=== PATIENT | male | born 1975 | race Caucasian/White ===

== ENCOUNTER 2018-05-17 09:59 | Emergency (ER) | payer SELFPAY ==
--- NOTE | 2018-05-17 10:37 | ER Document Report ---
ED General - General Chief Complaint: Knee Pain Stated Complaint: RIGHT KNEE PAIN Time Seen by Provider: 05/17/18 10:12 Notes: Patient is a 42-year-old male that presents to the emergency department for chief complaint of right knee pain. Patient states his been having knee swelling over the past week, and pain associated with walking. It has been progressively worse x-ray of the last 3 weeks, but worse in the last week so he decided come to the emergency department to have this evaluated. He states he has had issues with his knees in the past, and believes he has arthritis, he does have a history of gout as well, but this is not similar to his gout, and the pain is not as bad as when he had gout. He denies noting any fevers, chills or night sweats associated. The pain does not radiate to the hip or to the ankle. Denies any injury that he is aware of. He currently rates the pain as a 4 out of 10, worse with trying to extend his knee completely. 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 He does take naproxen which has not given him much relief. Past Medical History: Osteoarthritis, gout Past Surgical History: Denies surgical history Social History: Denies tobacco, alcohol or drug use Family History: Reviewed and noncontributory for presenting illness Allergies: Reviewed, see documented allergy list. REVIEW OF SYSTEMS: Unless otherwise stated in this report the patient's positive and negative responses for review of systems for constitutional, eyes, ENT, cardiovascular, respiratory, gastrointestinal, neurological, genitourinary, musculoskeletal, and integumentary systems and related systems to the presenting problem are either as stated in the HPI or were not pertinent or were negative for the symptoms and/or complaints related to the presenting medical problem. PHYSICAL EXAMINATION: Vital signs reviewed, nursing noted reviewed. GENERAL: Well-appearing, well-nourished and in no acute distress. HEAD: Atraumatic, normocephalic. EYES: Eyes appear normal, extraocular movements intact, sclera anicteric, conjunctiva are normal. ENT: nares patent, oropharynx clear without exudates. Moist mucous membranes. NECK: Normal range of motion, supple without lymphadenopathy LUNGS: Breath sounds clear to auscultation bilaterally and equal. No wheezes rales or rhonchi. HEART: Regular rate and rhythm without murmurs ABDOMEN: Soft, nontender, normoactive bowel sounds. No rebound, guarding, or rigidity. No masses appreciated. EXTREMITIES: Right knee effusion noted, no warmth or erythema noted. Tenderness with palpation over the medial and lateral joint lines. Good ROM, no joint laxity. Rest the patient's extremity exam is unremarkable. Good range of motion, nontender. NEUROLOGICAL: No focal neurological deficits. Moves all extremities spontaneously Motor and sensory grossly intact on exam. PSYCH: Normal mood, normal affect. SKIN: Warm, Dry, normal turgor, no rashes or lesions noted on exposed skin TRAVEL OUTSIDE OF THE [place] IN LAST 30 DAYS: No - Related Data Allergies/Adverse Reactions: No Known Allergies Allergy (Unverified 05/17/18 10:02) Past Medical History - Social History Smoking Status: Current Every Day Smoker Chew tobacco use (# tins/day): No Frequency of alcohol use: None Drug Abuse: None Family History: Reviewed & Not Pertinent Patient has suicidal ideation: No Patient has homicidal ideation: No Renal/ Medical History: Denies: Hx Peritoneal Dialysis Course - Re-evaluation Re-evalutation: Patient seen and examined vital signs reviewed. Patient was evaluated and treated as appropriate for the patient's presenting symptoms and complaint, with consideration of any critical or life threatening conditions that may be associated with their obtained history and exam as noted above. Patient was treated with tramadol and Depo-Medrol The patient was re-evaluated and was improved, given Jaime wrap offered crutches but declined Evaluation was most consistent with knee effusion, and pain, advised patient to follow-up with orthopedics, given prescription for tramadol Plan of care was discussed with the patient at this point, after careful consideration I feel that that patient can be discharged from the emergency department, the patient was educated treatments and reasons to return to the emergency department based on their presumed diagnosis as noted above, they were advised to followup with a primary care physician in 2-3 days. Patient was agreeable to plan of care. *Note is created using voice recognition software and may contain spelling, syntax or grammatical errors. Knee X-Ray 05/17/18 10:04 IMPRESSION: NEGATIVE STUDY OF THE RIGHT KNEE. NO RADIOGRAPHIC EVIDENCE OF ACUTE INJURY. Procedures - Immobilization Right Knee Pre-Proc Neuro Vasc Exam: Normal Immobilizer type: Jaime wrap Performed by: PCT Post-Proc Neuro Vasc Exam: Normal Alignment checked and good: Yes Discharge - Discharge Clinical Impression: Knee pain Qualifiers: Chronicity: acute Laterality: right Qualified Code(s): M25.561 - Pain in right knee Condition: Stable Disposition: HOME, SELF-CARE Instructions: Use of Crutches ([facility]), Ice & Elevation ([facility]), Sprained Knee ([facility]) Additional Instructions: Keep your leg elevated, apply the Jaime wrap, as much as possible, use crutches to keep your weight off. Right knee, and please follow-up with orthopedic surgery. Prescriptions: Ibuprofen [Motrin 600 Mg Tablet] 600 mg PO TID #15 tablet Tramadol HCl 50 mg PO Q8H PRN #10 tablet PRN Reason: knee pain Referrals: WILLIAM ASHLEY MD [ACTIVE STAFF] - Follow up as needed [facility] [Provider Group] - Follow up as needed
--- NOTE | 2018-05-17 11:02 | RADIOLOGY REPORT (SQ) ---
EXAM DESCRIPTION: KNEE RIGHT 4 VIEWS COMPLETED DATE/TIME: 05/17/2018 10:36 am REASON FOR STUDY: knee pain, previous injury COMPARISON: None. NUMBER OF VIEWS: Four views. TECHNIQUE: AP, lateral, and both oblique radiographic images acquired of the right knee. LIMITATIONS: None. FINDINGS: MINERALIZATION: Normal. BONES: No acute fracture or dislocation. No worrisome bone lesions. JOINT: No effusion. SOFT TISSUES: No soft tissue swelling. No radio-opaque foreign body. OTHER: No other significant finding. IMPRESSION: NEGATIVE STUDY OF THE RIGHT KNEE. NO RADIOGRAPHIC EVIDENCE OF ACUTE INJURY. TECHNICAL DOCUMENTATION: JOB ID: [id number] [employer]- All Rights Reserved Reading location - IP/workstation name: [email or web address]
[2018-05-17] MEDS ORDERED: TRAMADOL HCL 50 MG TABLET PO ONE (11:06)
[2018-05-17] MEDS ORDERED: METHYLPREDNISOLONE ACETATE INJ 80 MG/1 ML VIAL IM ONE (11:07)
== END 2018-05-17 11:53 | disposition home or self-care (01) ==
LOC: ER 09:59
DX: M25.561 Pain in right knee (principal); M25.461 Effusion, right knee; F17.200 Nicotine dependence, unspecified, uncomplicated
CPT/HCPCS: 99283; 73564; J1040